=== PATIENT | female | born 1995 | race Caucasian/White ===

== ENCOUNTER 2021-02-14 06:00 | Inpatient (IN) | payer OTHER ==
[2021-02-14 07:23] VITALS: BMI 31.2
[2021-02-14] MEDS: ELECTROLYTE-148 SOLN 1,000 ML IV SCH ×4 (08:00→23:00)
[2021-02-14] MEDS ORDERED: CITRIC ACID/SODIUM CITRATE 30 ML UNIT-DOSE CUP PO ONE (08:53)
[2021-02-14 08:56] LABS: BASO % 0.5 % (0-2.0); EOS % 0.5 % (0-4.5); HEMATOCRIT 32.9 % (32.4-45.2); HEMOGLOBIN 10.4 GM/dL (10.7-15.3); LYMPH % 16.3 % (8-40); MCH 23.4 pg (25.7-33.7); MCHC 31.6 g/dl (32.0-36.0); MEAN CELL VOLUME 73.8 fl (80-96); MEAN PLT VOLUME 8.2 fl (7.5-11.1); MONO % 5.2 % (3.8-10.2); NEUT % 77.5 % (42.8-82.8); PLATELET COUNT 252 10^3/uL (134-434); RBC 4.45 M/mm3 (3.60-5.2); RDW 21.2 % (11.6-15.6); WHITE BLOOD COUNT 15.3 K/mm3 (4.0-10.0)
[2021-02-14 09:03] LABS: INR 0.92 (0.83-1.09); PROTHROMBIN TIME (PATIENT) 11.3 SEC (9.7-13.0)
[2021-02-14 09:05] LABS: ACTIVATED PTT 79.5 SECONDS (25.2-36.5)
[2021-02-14 09:17] LABS: CALCIUM 8.4 mg/dL (8.5-10.1)
[2021-02-14 09:18] LABS: BLOOD UREA NITROGEN 12.4 mg/dL (7-18)
[2021-02-14 09:21] LABS: CREATININE 0.6 mg/dL (0.55-1.3)
[2021-02-14 10:27] LABS: ANISOCYTOSIS 2+; MACROCYTOSIS 0; OVALOCYTE 1+; PLATELET ESTIMATE NORMAL
[2021-02-14] MEDS ORDERED: OXYTOCIN 30 UNITS in 0.9% NS 30 UNIT/500 ML INFUS.BAG IVPB ONE (11:48)
[2021-02-14] MEDS ORDERED: OXYTOCIN 30 UNITS in 0.9% NS 30 UNIT/500 ML INFUS.BAG IVPB SCH (11:50)
[2021-02-14] MEDS ORDERED: PROMETHAZINE HCL 25 MG/1 ML VIAL IVPB ONE (12:30)
[2021-02-14] MEDS ORDERED: BUTORPHANOL TARTRATE 2 MG/ML VIAL IVPB ONE (12:30)
[2021-02-14] MEDS ORDERED: BUTORPHANOL TARTRATE 2 MG/ML VIAL ONE (12:31)
[2021-02-14] MEDS ORDERED: PROMETHAZINE HCL 25 MG/1 ML VIAL ONE (12:31)
[2021-02-14] MEDS ORDERED: PCA PUMP NR ONE ×2 (17:29→22:53)
[2021-02-14] MEDS ORDERED: BUPIVACAINE HCL/PF 0.25% (2.5MG/ML) 10 ML VIAL ONE (17:32)
[2021-02-14] MEDS ORDERED: FENTANYL/BUPIVACAINE/NS/PF - PCEA - 50 ML DISP.SYRIN EP ONE ×2 (17:44→22:53)
[2021-02-14] MEDS: FENTANYL/BUPIVACAINE/NS/PF - PCEA - 50 ML DISP.SYRIN EP SCH (18:10)
[2021-02-14] MEDS ORDERED: NALOXONE HCL 0.4 MG/ML VIAL IVPUSH PRN (18:17)
[2021-02-15] MEDS ORDERED: BUPIVACAINE HCL/PF 0.25% (2.5MG/ML) 10 ML VIAL ONE (00:43)
[2021-02-15] MEDS ORDERED: LIDOCAINE HCL 1% PRESERVATIVE FREE - 30ML VIAL ONE (00:43)
[2021-02-15] MEDS ORDERED: FENTANYL/BUPIVACAINE/NS/PF - PCEA - 50 ML DISP.SYRIN EP ONE ×2 (02:33→06:45)
[2021-02-15] MEDS: ELECTROLYTE-148 SOLN 1,000 ML IV SCH (05:00)
[2021-02-15] MEDS ORDERED: OXYTOCIN 20 UNITS in 0.9% NS 20 UNIT/1,000 ML INFUS.BAG IV ONE (09:14)
[2021-02-15] MEDS ORDERED: WITCH HAZEL 50% (TUCKS) 40 PAD/JAR PAD TP PRN (11:00)
[2021-02-15] MEDS ORDERED: OXYTOCIN 20 UNITS in 0.9% NS 20 UNIT/1,000 ML INFUS.BAG IV SCH (11:00)
[2021-02-15] MEDS ORDERED: IBUPROFEN 600 MG TABLET (FP) PO PRN (11:00)
[2021-02-15] MEDS ORDERED: ACETAMINOPHEN 325 MG TABLET (FP) PO PRN (11:00)
[2021-02-15] MEDS ORDERED: METHYLERGONOVINE MALEATE 0.2 MG/1 ML AMP IM PRN (11:00)
[2021-02-15] MEDS ORDERED: BENZOCAINE 28 GM HEMORRHOIDAL OINTMENT TP PRN (11:00)
[2021-02-15] MEDS ORDERED: BISACODYL 10 MG SUPP.RECT RC PRN (11:00)
[2021-02-15] MEDS ORDERED: BENZOCAINE 20% 57 GM BOTTLE TP PRN (11:00)
[2021-02-15 11:09] LABS: CORD BASE EXCESS -7.3 mmol/L (0-2); CORD HCO3 20.7 mmHg (20-29); CORD pH 7.226 (7.14-7.44)
[2021-02-15 11:12] LABS: CORD BASE EXCESS -7.8 mmol/L (0-2); CORD HCO3 19.9 mmHg (20-29); CORD PCO2 48.6 mmHg (30-78); CORD pH 7.231 (7.14-7.44)
[2021-02-15] MEDS: FERROUS SO4 325 MG TABLET (FP) PO SCH (17:19)
[2021-02-15] MEDS: FENTANYL/BUPIVACAINE/NS/PF - PCEA - 50 ML DISP.SYRIN EP SCH (22:49)
[2021-02-16] MEDS: FERROUS SO4 325 MG TABLET (FP) PO SCH ×2 (09:03→18:20)
[2021-02-16] MEDS: ELECTROLYTE-148 SOLN 1,000 ML IV SCH (10:01)
[2021-02-16 10:07] LABS: HEMATOCRIT 27.9 % (32.4-45.2); MCH 23.7 pg (25.7-33.7); MCHC 32.4 g/dl (32.0-36.0); MEAN CELL VOLUME 73.1 fl (80-96); PLATELET COUNT 222 10^3/uL (134-434); RBC 3.81 M/mm3 (3.60-5.2); RDW 21.4 % (11.6-15.6); WHITE BLOOD COUNT 22.3 K/mm3 (4.0-10.0)
[2021-02-16] MEDS: PRENATAL VITAMINS W/ FOLIC ACID TABLET (FP) PO SCH (10:07)
[2021-02-16 10:37] LABS: ANISOCYTOSIS 1+; MACROCYTOSIS 1+; OVALOCYTE 1+; PLATELET ESTIMATE NORMAL
[2021-02-16] MEDS: FENTANYL/BUPIVACAINE/NS/PF - PCEA - 50 ML DISP.SYRIN EP SCH (19:12)
[2021-02-16] MEDS ORDERED: SENNOSIDES/DOCUSATE COMBO (SENNA PLUS) TABLET (UD) PO PRN (22:00)
[2021-02-17] MEDS: FERROUS SO4 325 MG TABLET (FP) PO SCH (10:02)
[2021-02-17] MEDS: PRENATAL VITAMINS W/ FOLIC ACID TABLET (FP) PO SCH (10:02)
[2021-02-17 10:11] LABS: BASO % 0.3 % (0-2.0); EOS % 2.5 % (0-4.5); HEMATOCRIT 30.1 % (32.4-45.2); HEMOGLOBIN 9.6 GM/dL (10.7-15.3); LYMPH % 8.4 % (8-40); MCH 23.6 pg (25.7-33.7); MCHC 31.9 g/dl (32.0-36.0); MEAN CELL VOLUME 73.9 fl (80-96); MEAN PLT VOLUME 8.2 fl (7.5-11.1); MONO % 3.5 % (3.8-10.2); NEUT % 85.3 % (42.8-82.8); PLATELET COUNT 274 10^3/uL (134-434); RBC 4.07 M/mm3 (3.60-5.2); RDW 21.3 % (11.6-15.6); WHITE BLOOD COUNT 17.1 K/mm3 (4.0-10.0)
[2021-02-17 10:18] VITALS: BP 122/70; PULSE 69; TEMP 98
[2021-02-17 10:42] LABS: ANISOCYTOSIS 1+; MACROCYTOSIS 1+; PLATELET ESTIMATE NORMAL
== END 2021-02-17 13:50 | disposition home or self-care (01) | DRG 560 ==
LOC: JDEL 06:00 → JLDR 06:42 → J3W 02-15 12:20
PROVIDERS: ADMIT Obstetrics & Gynecology; ATTEND Obstetrics & Gynecology
PROC: 10907ZC Drainage of Amniotic Fluid, Therapeutic from Products of Conception, Via Natural or Artificial Opening (ICD-10-PCS; 2021-02-14)
PROC: 10E0XZZ Delivery of Products of Conception, External Approach (ICD-10-PCS; principal; 2021-02-15)
PROC: 0W8NXZZ Division of Female Perineum, External Approach (ICD-10-PCS; 2021-02-15)
DX: O63.0 Prolonged first stage (of labor) (principal); O69.81X0 Labor and delivery complicated by cord around neck, without compression, not applicable or unspecified; O70.0 First degree perineal laceration during delivery; Z3A.40 40 weeks gestation of pregnancy; Z37.0 Single live birth
CPT/HCPCS: 36415; 36600; 59025; 59409; 80048; 82803; 85025; 85610; 85730; 86780; 86850; 86900; 86901; C9803; U0003; U0005